=== PATIENT | female | born 1995 | race American Indian/Alaskan Native ===

== ENCOUNTER 2019-09-06 12:32 | Emergency (ER) | payer SELFPAY ==
--- NOTE | 2019-09-06 12:50 | Event Note ---
ED Screening Note Date of service: 09/06/19 Time: 12:49 ED Screening Note: Pt complains of nose injury from fall x last night This initial assessment/diagnostic orders/clinical plan/treatment(s) is/are subject to change based on patients health status, clinical progression and re- assessment by fellow clinical providers in the ED. Further treatment and workup at subsequent clinical providers discretion. Patient/guardian urged not to elope from the ED as their condition may be serious if not clinically assessed and managed. Initial orders include: CT face
--- NOTE | 2019-09-06 15:15 | Cat Scan Report ---
CT MAXILLOFACIAL WITHOUT CONTRAST INDICATION / CLINICAL INFORMATION: nose injury. TECHNIQUE: All CT scans at this location are performed using CT dose reduction for ALARA by means of automated e xposure control. COMPARISON: None available. FINDINGS: FACIAL BONES: Comminuted fractures of the nasal bones and nasal processes of the maxillary are demons trated bilaterally. There is rightward displacement of the nasal bone. Associated soft tissue swellin g is observed. No additional facial fractures are identified. PARANASAL SINUSES: No significant abnormality. NASAL CAVITY: No abnormality ORBITS: No significant abnormality. VISUALIZED INTRACRANIAL STRUCTURES: No significant abnormality. IMPRESSION: 1. Comminuted fractures of the nasal bones and nasal processes of the maxillae are demonstrated joan aterally as described above. Signer Name: Joni Thompson MD Signed: 09/06/2019 3:10 PM Workstation Name: [id number]
[2019-09-06] MEDS ORDERED: HYDROcodone/ACETAMINOPHEN 5-325 MG TAB PO ONE (16:41)
--- NOTE | 2019-09-06 16:41 | Emergency Department Report ---
ED General Adult HPI - General Chief complaint: Fall Stated complaint: NOSE INJURY Time Seen by Provider: 09/06/19 16:41 Source: patient, family Mode of arrival: Ambulatory Limitations: No Limitations - History of Present Illness Initial comments: This is a 23-year-old female here report that she fell off a ladder and hurt her nose yesterday. She said she woke up this morning with nose swollen and pain. Denies taking any pain medication prior to coming to the emergency room. Denies any headache or head injury. Denies being intoxicated. She said this was an accident. Denies any numbness or tingling to extremities. Denies any neck pain or stiffness. Is located only at nasal area. Denies any difficulty opening and closing her mouth or eating. Denies any nausea or vomiting. Denies any dizziness or loss of consciousness. Pain is 6 out of 10 and achy/throbbing.Pain is constant and worse with touch MD Complaint: fall with nasal pain and swelling -: Last night Location: face Radiation: non-radiation Severity scale (0 -10): 6 Quality: aching, other (Throbbing) Consistency: constant Improves with: cold therapy Worsens with: movement Associated Symptoms: denies: confusion, chest pain, cough, diaphoresis, fever/chills, headaches, loss of appetite, malaise, nausea/vomiting, rash, seizu re, shortness of breath, syncope, weakness Treatments Prior to Arrival: cold therapy - Related Data Previous Rx's Medication Instructions Recorded Last Taken Type Amoxicillin/Potassium Clav 1 each PO Q12H 10 Days #20 tablet 09/06/19 Unknown Rx [Augmentin 875-125 Tablet] HYDROcodone/APAP 5-325 [Bailey 1 each PO Q6HR PRN #12 tablet 09/06/19 Unknown Rx 5/325] Ibuprofen [Motrin] 400 mg PO Q8H PRN #15 tablet 09/06/19 Unknown Rx Allergies Allergy/AdvReac Type Severity Reaction Status Date / Time No Known Allergies Allergy Unverified 09/06/19 12:48 ED Review of Systems ROS: Stated complaint: NOSE INJURY Other details as noted in HPI Constitutional: denies: chills, fever ENT: denies: throat pain, congestion Respiratory: denies: cough, shortness of breath, wheezing Cardiovascular: denies: chest pain, palpitations Gastrointestinal: denies: nausea, vomiting Musculoskeletal: denies: back pain Skin: other (scatch to nose) Neurological: denies: headache, numbness, paresthesias, abnormal gait, vertigo ED Past Medical Hx - Past Medical History Previous Medical History?: No - Surgical History Past Surgical History?: No - Family History Family history: hypertension - Social History Smoking Status: Current Every Day Smoker Substance Use Type: None - Medications Home Medications: Home Medications Medication Instructions Recorded Confirmed Last Taken Type Amoxicillin/Potassium Clav 1 each PO Q12H 10 Days #20 tablet 09/06/19 Unknown Rx [Augmentin 875-125 Tablet] HYDROcodone/APAP 5-325 [Bailey 1 each PO Q6HR PRN #12 tablet 09/06/19 Unknown Rx 5/325] Ibuprofen [Motrin] 400 mg PO Q8H PRN #15 tablet 09/06/19 Unknown Rx ED Physical Exam - General Limitations: No Limitations General appearance: alert, in no apparent distress - Head Head exam: Present: atraumatic, normocephalic, normal inspection - Expanded Head Exam Expanded Head exam: Present: abrasion (nasal bone area on left side). Absent: laceration, contusion, hematoma, racoon eyes, ku's sign, general tenderness, tenderness of temporal artery, CSF rhinorrhea, CSF otorrhea - Eye Eye exam: Present: normal appearance, PERRL, EOMI. Absent: nystagmus, periorbital swelling, periorbital tenderness Pupils: Present: normal accommodation - ENT ENT exam: Present: normal orophraynx, mucous membranes moist, TM's normal bilaterally, normal external ear exam, other (Tender to palpate proximal nasal area with swelling. Bilateral sinuses nontender to palpate.) - Expanded ENT Exam Expanded Mouth exam: Present: normal external inspection, tongue normal. Absent: trismus, muffled voice Teeth exam: Present: normal inspection Throat exam: Positive: normal inspection - Neck Neck exam: Present: normal inspection, full ROM, other (No C-spine tenderness). Absent: tenderness, lymphadenopathy - Respiratory Respiratory exam: Present: normal lung sounds bilaterally. Absent: respiratory distress, chest wall tenderness - Cardiovascular Cardiovascular Exam: Present: regular rate, normal rhythm, normal heart sounds - GI/Abdominal GI/Abdominal exam: Present: soft, normal bowel sounds. Absent: distended, tenderness, organomegaly - Extremities Exam Extremities exam: Present: normal inspection, full ROM, normal capillary refill, other (tubbing, cyanosis or edema. +2 pulses to all extremities. No neurovascular compromise). Absent: tenderness, pedal edema, joint swelling, calf tenderness - Back Exam Back exam: Present: normal inspection, full ROM, other (ambulates without any difficulties). Absent: tenderness, CVA tenderness (R), CVA tenderness (L), muscle spasm, paraspinal tenderness, vertebral tenderness, rash noted - Neurological Exam Neurological exam: Present: alert, oriented X3, normal gait, reflexes normal. Absent: motor sensory deficit - Expanded Neurological Exam Expanded Neurological exam: Absent: innattentive, memory loss-remote event, memory loss- recent event, ataxia, receptive aphasia, expressive aphasia, total aphasia, tremor, protecting the airway Patient oriented to: Present: person, place, time Speech: Present: fluid speech Cranial nerves: EOM's Intact: Normal, Gag Reflex: Normal, Tongue Deviation: Normal, Nystagmus: Normal, Facial Sensation: Normal Cerebellar function: Romberg: Normal Upper motor neuron: Pronator Drift: Normal, Sensory Extinction: Normal Sensory exam: Upper Extremity Light Touch: Normal, Upper Extremity Temperature: Normal, Lower Extremity Light Touch: Normal, Lower Extremity Temperature: Normal, LE 2 Point Discrimination: Normal Motor strength exam: RUE: 5, LUE: 5, RLE: 5, LLE: 5 Best Eye Response (Braman): (4) open spontaneously Best Motor Response (Heather): (6) obeys commands Best Verbal Response (Heather): (5) oriented Heather Total: 15 - Psychiatric Psychiatric exam: Present: normal affect, normal mood - Skin Skin exam: Present: warm, dry, normal color, abrasion (abrasion noted to left nasal bone area. Superficial. Scabbing noted.) ED Course Vital Signs 09/06/19 12:40 Temperature 98.0 F Pulse Rate 58 L Respiratory 16 Rate Blood Pressure 109/42 O2 Sat by Pulse 99 Oximetry - Reevaluation(s) Reevaluation #1: 09/06/19 17:38 given Bailey 5/325 2 tablets by mouth, Motrin 400 mg by mouth and strength 0.5 mL IM. Pain is better. Ice pack applied to the nasal bone area. ED Medical Decision Making - Radiology Data Radiology results: report reviewed CT scan maxillofacial without contrast dictated by radiologist and report reviewed by myself. Please see details below. Print Report Referring Physician: AMALIA BARROW Patient Name: JOSE MANUEL WINN Date of : 1995 Sex: Female Report Date: 2019-09-06 Report Status: Finalized Findings [facility] [address] [id number] Cat Scan Report Signed Patient: JOSE MANUEL WINN MR#: [id number] : 1995 Acct:[id number] Age/Sex: 23 / F ADM Date: 09/06/19 Loc: ED Attending Dr: Ordering Physician: AMALIA BARROW Date of Service: 09/06/19 Procedure(s): CT facial bones wo con Accession Number(s): [id number] cc: AMALIA BARROW CT MAXILLOFACIAL WITHOUT CONTRAST INDICATION / CLINICAL INFORMATION: nose injury. TECHNIQUE: All CT scans at this location are performed using CT dose reduction for ALARA by means of automated exposure control. COMPARISON: None available. FINDINGS: FACIAL BONES: Comminuted fractures of the nasal bones and nasal processes of the maxillary are demonstrated bilaterally. There is rightward displacement of the nasal bone. Associated soft tissue swelling is observed. No additional facial fractures are identified. PARANASAL SINUSES: No significant abnormality. NASAL CAVITY: No abnormality ORBITS: No significant abnormality. VISUALIZED INTRACRANIAL STRUCTURES: No significant abnormality. IMPRESSION: 1. Comminuted fractures of the nasal bones and nasal processes of the maxillae are demonstrated bilaterally as described above. Signer Name: Joni Thompson MD Signed: 09/06/2019 3:10 PM Workstation Name: [id number] Transcribed By: Dictated By: Joni Thompson MD Electronically Authenticated By: Joni Thompson MD Signed Date/Time: 09/06/19 1510 DD/ 1505 TD/TT: - Medical Decision Making 23-year-old female who reports falling last night after accidentally slipping off a ladder. She says when she fell she hit her nasal area. Denies any all involvement. Physical findings stable including neurological exam except nasal bone deformity bilateral, tender to palpate with small abrasion to left nasal area. CT scan maxillofacial without contrast dictated by radiologist and report reviewed by myself and patient with,fracture bilaterally. Pt educated and diagnosis, medication, and discharge plans with follow up FLAVIO and she voiced understanding. Discharge home with her family with prescription for norco, motrin and augmentin. Pain is controlled - Differential Diagnosis fracture versus contusion, Critical care attestation.: If time is entered above; I have spent that time in minutes in the direct care of this critically ill patient, excluding procedure time. ED Disposition Clinical Impression: Abrasion, face w/o infection Fractured nasal bones Qualifiers: Encounter type: initial encounter Fracture type: closed Qualified Code(s): S02.2XXA - Fracture of nasal bones, initial encounter for closed fracture Disposition: TO HOME OR SELFCARE Is pt being admited?: No Does the pt Need Aspirin: No Condition: Stable Instructions: Nasal Fracture (ED), Abrasion (ED), RICE Therapy (ED) Additional Instructions: Follow up with Ear Nose and Throat doctor as instructed. See discharge instruction papers Take medication as prescribed and please do not drive or operate heavy machinary while taking Bailey as this medication causes drowsiness Apply cool compreses to nasal area 3-4 x/day to reduce swelling If your condition worsens, return to emergency room Referrals: PRIMARY CARE, [Primary Care Provider] - 09/08/19 ROSALINDA SARMIENTO MD [Staff Physician] - 09/08/19 Forms: Work/School Release Form(ED)
[2019-09-06] MEDS ORDERED: IBUPROFEN 400 MG TAB PO ONE (16:42)
[2019-09-06] MEDS ORDERED: TETANUS,DIPH,PERTUSS(ACELL) VACCINE 0.5 ML SYRINGE IM ONE (16:42)
[2019-09-06 18:13] VITALS: BP 112/63
== END 2019-09-06 18:16 | disposition home or self-care (01) ==
LOC: ED 12:32
DX: S02.2XXA Fracture of nasal bones, initial encounter for closed fracture (principal); S00.81XA Abrasion of other part of head, initial encounter; F17.200 Nicotine dependence, unspecified, uncomplicated; Z79.899 Other long term (current) drug therapy; W11.XXXA Fall on and from ladder, initial encounter; Y93.89 Activity, other specified; Y92.89 Other specified places as the place of occurrence of the external cause; Y99.8 Other external cause status
CPT/HCPCS: 70486; 90471; 90715